=== PATIENT | male | born 1940 | race African-American/Black ===

== ENCOUNTER 2023-01-04 11:46 | Inpatient (IN) | payer MEDICARE, OTHER ==
[~2023-01-04] VITALS: Ht 180.3 cm; Wt 72.6 kg
[2023-01-04 12:47] LABS: BASOPHILS % (AUTO) 0.4 % (0.0-2.0); EOSINOPHILS # (AUTO) 0.1 K/uL (0.0-0.7); EOSINOPHILS % (AUTO) 1.1 % (0.0-6.0); HEMATOCRIT 36 % (39-51); HEMOGLOBIN 11.6 g/dL (13.5-17.5); LYMPHOCYTES # (AUTO) 0.7 K/uL (0.8-4.8); LYMPHOCYTES % (AUTO) 10.6 % (20.0-44.0); MEAN CORPUSCULAR HEMOGLOBIN 28 PG (26.0-33.0); MEAN CORPUSCULAR HGB CONC 32 g/dl (31.0-36.0); MEAN CORPUSCULAR VOLUME 88 fL (80-96); MONOCYTES # (AUTO) 0.9 K/uL (0.1-1.30); MONOCYTES % (AUTO) 14.7 % (2.0-12.0); NEUTROPHILS # (AUTO) 4.5 K/uL (1.8-8.9); NEUTROPHILS % (AUTO) 73.2 % (43.0-81.0); PLATELET COUNT (AUTO) 232 K/uL (150-450); RED BLOOD CELL COUNT(AUTO) 4.15 MIL/uL (4.5-6.0); WHITE BLOOD COUNT (AUTO) 6.2 K/uL (4.3-11.0)
[2023-01-04 12:56] LABS: CALCIUM, SERUM 9.3 mg/dL (8.5-10.1); CARBON DIOXIDE 28 mmol/L (21-32); CHLORIDE 97 mmol/L (98-107); CREATININE 1.1 mg/dL (0.6-1.3); GLUCOSE 122 mg/dL (74-106); POTASSIUM 4.4 mmol/L (3.5-5.1); SODIUM SERUM 131 mmol/L (136-145); UREA NITROGEN, BLOOD 14 mg/dL (7-18)
[2023-01-04 13:03] LABS: INR 1.1 (0.91-1.10); PARTIAL THROMBOPLASTIN TIME 26.8 SEC (24.3-34.3); PROTHROMBIN TIME 11.6 SECS (9.2-11.1)
[2023-01-04 13:04] LABS: ALANINE AMINOTRANSFERASE 18 U/L (12-78); ALBUMIN 3.4 g/dL (3.4-5.0); ALKALINE PHOSPHATASE 86 U/L (46-116); ASPARTATE AMINOTRANSFERASE 14 U/L (15-37); BILIRUBIN,DIRECT 0.3 mg/dL (0.0-0.2)
[2023-01-04 13:06] LABS: LACTIC ACID 2.4 mmol/L (0.4-2.0)
[2023-01-04] MEDS ORDERED: IV NS 0.9% 1,000 ML BAG IV ONE (13:30)
[2023-01-04] MEDS ORDERED: CEFTRIAXONE 1GM BAG (ER ONLY) 50 ML IV ONE ×2 (13:30→13:33)
[2023-01-04] MEDS ORDERED: FAMO20TA8 PO (13:42)
[2023-01-04] MEDS ORDERED: AMMO385C4 TP (13:42)
[2023-01-04] MEDS ORDERED: ATOR40TA PO (13:42)
[2023-01-04] MEDS ORDERED: LISI20TA30 PO (13:42)
[2023-01-04] MEDS ORDERED: MAGN400T26 PO (13:42)
[2023-01-04] MEDS ORDERED: CHOL100043 PO (13:42)
[2023-01-04] MEDS ORDERED: DILT120T2 PO (13:42)
[2023-01-04] MEDS ORDERED: DOCU100C58 PO (13:42)
[2023-01-04] MEDS ORDERED: SENN-175 PO (13:42)
[2023-01-04] MEDS ORDERED: CLOB15OI3 TP (13:42)
[2023-01-04] MEDS ORDERED: CYAN-51 PO (13:42)
[2023-01-04] MEDS ORDERED: POLY17PO4 PO (13:42)
[2023-01-04] MEDS ORDERED: GUAI5SYR PO (13:42)
[2023-01-04] MEDS ORDERED: AMIN30LI2 PO (13:42)
[2023-01-04 13:43] VITALS: O2SAT 97
[2023-01-04] MEDS ORDERED: ONDANSETRON HCL/PF 4 MG/2 ML VIAL IVP PRN (15:00)
[2023-01-04] MEDS ORDERED: MAG HYDROX/AL HYDROX/SIMETH 30 ML UDC PO PRN (15:00)
[2023-01-04] MEDS ORDERED: Z GUARD REMEDY 4 OZ OINT TP PRN (15:00)
[2023-01-04] MEDS ORDERED: CLOBETASOL 0.05% OINT 30 GM TUBE TP PRN (15:00)
[2023-01-04] MEDS ORDERED: MAGNESIUM HYDROXIDE 30 ML UDC PO PRN (15:00)
[2023-01-04] MEDS ORDERED: ACETAMINOPHEN 325 MG TABLET PO PRN (15:00)
[2023-01-04 17:00] VITALS: BP 137/77; TEMP 97.9; O2SAT 99
[2023-01-04] MEDS: MAGNESIUM OXIDE 400 MG TABLET PO SCH (17:53)
[2023-01-04 20:00] VITALS: BP 121/64; TEMP 98.2; O2SAT 97
[2023-01-04] MEDS: GUAIFENESIN/D-METHORPHAN HB 5 ML UDC PO SCH (20:13)
[2023-01-04] MEDS: IV NS 0.9% 1,000 ML IV PRN (20:13)
[2023-01-04] MEDS: SENNOSIDES 8.6 MG TABLET PO SCH ×2 (22:00→22:17)
[2023-01-05] MEDS: GUAIFENESIN/D-METHORPHAN HB 5 ML UDC PO SCH ×3 (05:44→20:39)
[2023-01-05 07:13] LABS: BASOPHILS % (AUTO) 0.4 % (0.0-2.0); EOSINOPHILS # (AUTO) 0.1 K/uL (0.0-0.7); EOSINOPHILS % (AUTO) 1.6 % (0.0-6.0); HEMATOCRIT 31 % (39-51); HEMOGLOBIN 10.2 g/dL (13.5-17.5); LYMPHOCYTES # (AUTO) 0.4 K/uL (0.8-4.8); LYMPHOCYTES % (AUTO) 11.2 % (20.0-44.0); MEAN CORPUSCULAR HEMOGLOBIN 28 PG (26.0-33.0); MEAN CORPUSCULAR HGB CONC 33 g/dl (31.0-36.0); MEAN CORPUSCULAR VOLUME 86 fL (80-96); MONOCYTES # (AUTO) 0.7 K/uL (0.1-1.30); MONOCYTES % (AUTO) 19.8 % (2.0-12.0); NEUTROPHILS # (AUTO) 2.3 K/uL (1.8-8.9); PLATELET COUNT (AUTO) 206 K/uL (150-450); RED BLOOD CELL COUNT(AUTO) 3.62 MIL/uL (4.5-6.0); RED CELL DISTRIBUTION WIDTH 14.6 % (11.5-15.0); WHITE BLOOD COUNT (AUTO) 3.4 K/uL (4.3-11.0)
[2023-01-05 07:32] LABS: CALCIUM, SERUM 8.3 mg/dL (8.5-10.1); CARBON DIOXIDE 25 mmol/L (21-32); CHLORIDE 101 mmol/L (98-107); CREATININE 0.9 mg/dL (0.6-1.3); GLUCOSE 90 mg/dL (74-106); MAGNESIUM 1.9 mg/dL (1.8-2.4); PHOSPHORUS 2.7 mg/dL (2.5-4.9); POTASSIUM 4.3 mmol/L (3.5-5.1); SODIUM SERUM 134 mmol/L (136-145); UREA NITROGEN, BLOOD 13 mg/dL (7-18)
[2023-01-05 08:00] VITALS: BP 133/77; TEMP 97.5; O2SAT 98
[2023-01-05] MEDS: POLYETHYLENE GLYCOL 3350 17 GM POWD.PACK PO SCH ×2 (09:00→09:15)
[2023-01-05] MEDS: DOCUSATE SODIUM 100 MG CAPSULE PO SCH ×2 (09:00→09:15)
[2023-01-05 09:02] LABS: LYMPHOCYTES % (MANUAL) 11 % (16-48); MONOCYTES % (MANUAL) 13 % (0-11.0); NEUTROPHILS % (MANUAL) 76 (42-76)
[2023-01-05 09:03] LABS: PLATELET ESTIMATE ADEQUATE
[2023-01-05] MEDS: DILTIAZEM HCL CD 120 MG PO SCH (09:15)
[2023-01-05] MEDS: MAGNESIUM OXIDE 400 MG TABLET PO SCH ×2 (09:15→16:54)
[2023-01-05] MEDS: FAMOTIDINE (20 MG) 20 MG TABLET PO SCH (09:16)
[2023-01-05] MEDS: IV NS 0.9% 1,000 ML IV PRN (10:29)
[2023-01-05] MEDS: CEFTRIAXONE 1 G in IV D5W 50 ML IV SCH (13:39)
[2023-01-05 14:44] LABS: MAGNESIUM 1.8 mg/dL (1.8-2.4)
[2023-01-05 14:55] LABS: THYROID STIMULATING HORMONE 0.354 uIU/mL (0.358-3.74); URIC ACID 4.7 mg/dL (2.6-7.2)
[2023-01-05 16:00] VITALS: BP 125/68; TEMP 98.4; O2SAT 98
[2023-01-05] MEDS: ENSURE ENLIVE 237 ML LIQUID (VANILLA) PO SCH (17:21)
[2023-01-05] MEDS: SENNOSIDES 8.6 MG TABLET PO SCH (21:26)
[2023-01-06] MEDS: IV NS 0.9% 1,000 ML IV PRN (03:05)
[2023-01-06] MEDS: GUAIFENESIN/D-METHORPHAN HB 5 ML UDC PO SCH ×2 (05:40→12:41)
[2023-01-06 07:01] LABS: BASOPHILS % (AUTO) 0.5 % (0.0-2.0); EOSINOPHILS % (AUTO) 1.2 % (0.0-6.0); HEMATOCRIT 31 % (39-51); HEMOGLOBIN 10.1 g/dL (13.5-17.5); LYMPHOCYTES # (AUTO) 0.6 K/uL (0.8-4.8); LYMPHOCYTES % (AUTO) 17.8 % (20.0-44.0); MEAN CORPUSCULAR HEMOGLOBIN 29 PG (26.0-33.0); MEAN CORPUSCULAR HGB CONC 33 g/dl (31.0-36.0); MEAN CORPUSCULAR VOLUME 87 fL (80-96); MONOCYTES # (AUTO) 0.6 K/uL (0.1-1.30); MONOCYTES % (AUTO) 19.7 % (2.0-12.0); NEUTROPHILS # (AUTO) 1.9 K/uL (1.8-8.9); NEUTROPHILS % (AUTO) 60.8 % (43.0-81.0); PLATELET COUNT (AUTO) 204 K/uL (150-450); RED BLOOD CELL COUNT(AUTO) 3.54 MIL/uL (4.5-6.0); RED CELL DISTRIBUTION WIDTH 15.2 % (11.5-15.0); WHITE BLOOD COUNT (AUTO) 3.2 K/uL (4.3-11.0)
[2023-01-06 07:19] LABS: CALCIUM, SERUM 8.4 mg/dL (8.5-10.1); CARBON DIOXIDE 23 mmol/L (21-32); CHLORIDE 100 mmol/L (98-107); CREATININE 0.9 mg/dL (0.6-1.3); GLUCOSE 113 mg/dL (74-106); POTASSIUM 4.4 mmol/L (3.5-5.1); SODIUM SERUM 132 mmol/L (136-145); UREA NITROGEN, BLOOD 16 mg/dL (7-18)
[2023-01-06 08:12] VITALS: BP 146/75; TEMP 98.1; O2SAT 100
[2023-01-06] MEDS: ENSURE ENLIVE 237 ML LIQUID (VANILLA) PO SCH (09:00)
[2023-01-06] MEDS ORDERED: ALBU18HF2 INH (09:50)
[2023-01-06] MEDS: POLYETHYLENE GLYCOL 3350 17 GM POWD.PACK PO SCH (09:55)
[2023-01-06] MEDS: MAGNESIUM OXIDE 400 MG TABLET PO SCH (09:55)
[2023-01-06] MEDS: DOCUSATE SODIUM 100 MG CAPSULE PO SCH (09:55)
[2023-01-06] MEDS: FAMOTIDINE (20 MG) 20 MG TABLET PO SCH (09:55)
[2023-01-06 10:03] VITALS: BP 126/74
[2023-01-06] MEDS: DILTIAZEM HCL CD 120 MG PO SCH (10:03)
[2023-01-06] MEDS: CEFTRIAXONE 1 G in IV D5W 50 ML IV SCH (12:41)
[2023-01-06 14:19] LABS: EOSINOPHILS % (MANUAL) 1 % (0-4); LYMPHOCYTES % (MANUAL) 25 % (16-48); MONOCYTES % (MANUAL) 18 % (0-11.0); MYELOCYTES % 1 % (0-0); NEUTROPHILS % (MANUAL) 55 (42-76); PLATELET ESTIMATE ADEQUATE
== END 2023-01-06 15:37 | DRG 191 ==
LOC: ER 11:51 → TELE 16:00 → MED 21:07
PROVIDERS: ADMIT Internal Medicine; ATTEND Internal Medicine
DX: J44.1 Chronic obstructive pulmonary disease with (acute) exacerbation (principal); E87.1 Hypo-osmolality and hyponatremia; I69.354 Hemiplegia and hemiparesis following cerebral infarction affecting left non-dominant side; E87.20 Acidosis, unspecified; E86.0 Dehydration; E11.9 Type 2 diabetes mellitus without complications; I10 Essential (primary) hypertension; E86.1 Hypovolemia; D64.9 Anemia, unspecified; E78.5 Hyperlipidemia, unspecified; J45.909 Unspecified asthma, uncomplicated; R53.1 Weakness; Z20.822 Contact with and (suspected) exposure to COVID-19
CPT/HCPCS: 36415; 71045-TC; 80048-TC; 80076-TC; 82533; 83605-TC; 83735-TC; 83880; 84100-TC; 84443-TC; 84484-TC; 84550-TC; 85025-TC; 85730-TC; 87040-TC; 97110-TC; 97116-TC; 97530-TC; A4223; C9803; G0378; J0696; J7030; J7060